=== PATIENT | male | born 1970 | race African-American/Black ===

== ENCOUNTER 2021-10-05 07:00 | Inpatient (IN) ==
[2021-10-05] MEDS ORDERED: HYDROmorphone 1 MG/1 ML SYRINGE IV STA ×3 (07:11→11:30)
[2021-10-05] MEDS ORDERED: ONDANSETRON 4 MG/2 ML VIAL IV STA (07:11)
[2021-10-05] MEDS ORDERED: SODIUM CHLORIDE 0.9% 1,000 ML IV STA ×2 (07:11→09:17)
[2021-10-05] MEDS ORDERED: diphenhydrAMINE 50 MG/1 ML VIAL ONE (07:15)
[2021-10-05 08:06] LABS: Basophils % 0.1 % (0.0-0.8); Eosinophils # 0.1 10*3/uL (0.0-0.87); Eosinophils % 0.9 % (0.00-10.9); Hematocrit 47.5 VOL% (42.0-52.0); Immature Granulocytes % 0.3 %; Immature Granulocytes Absolute 0.02 #; Lymphocytes # 1.4 10*3/uL (1.4-4.0); Lymphocytes % 18.3 % (21.2-54.2); Mean Corpuscular HGB Conc 31.6 GM/DL (32-36); Mean Corpuscular Volume 89.8 FL (87-102); Mean Platelet Volume 11.2 FL (9.6-12.0); Monocytes # 0.3 10*3/uL (0.11-0.8); Neutrophils % 76.4 % (38.7-73.9); Platelet Count 231 T/CUMM (130-400); Red Blood Count 5.29 MC/CUMM (3.8-5.5); Red Cell Distribution Width 13.6 % (9.3-17.3); White Blood Count 7.5 T/CUMM (4-12)
[2021-10-05 08:28] LABS: Alanine Aminotransferase 43 U/L (16-61); Albumin 3.8 G/DL (3.4-5.0); Alkaline Phosphatase 116 U/L (45-117); Aspartate Amino Transferase 26 U/L (0-37); Blood Urea Nitrogen 21 MG/DL (7-18); Calcium 9.6 MG/DL (8.5-10.1); Carbon Dioxide 30 MMOL/L (21-32); Chloride 103 MMOL/L (98-107); Glucose 154 MG/DL (74-106); Osmolality,Calculated 278.8 MOS/KG (273-304); Sodium 137 MMOL/L (136-145); Total Protein 8.9 G/DL (6.4-8.2)
[2021-10-05 09:40] LABS: Bacteria,Urine Occasional /HPF (Few); Mucus,Urine Occasional /LPF (Occasional); RBC,Urine 2 /HPF (0-4)
[2021-10-05 09:41] LABS: Bilirubin,Urine Negative (Negative); Blood, Urine Negative (Negative); Glucose,Urine (UA) Negative (Negative); Ketones,Urine Negative (Negative); Nitrite,Urine Negative (Negative); Protein,Urine Negative (Negative); Urine Appearance Clear (Clear); Urine Color Yellow (Yellow); Urine Urobilinogen 0.2 eU/dL (<2.0); Urine pH 8.5 (4.5-8.0)
[2021-10-05] MEDS ORDERED: hydrALAZINE 20 MG/1 ML VIAL ONE (11:27)
[2021-10-05] MEDS ORDERED: hydrALAZINE 20 MG/1 ML VIAL IV STA (11:30)
[2021-10-05] MEDS ORDERED: ALBUTEROL/IPRATROPIUM 3 ML NEB RESP TX PRN (13:37)
[2021-10-05] MEDS ORDERED: HYDROmorphone 1 MG/1 ML SYRINGE IV PRN (13:37)
[2021-10-05] MEDS ORDERED: ACETAMINOPHEN 325 MG TABLET PO PRN (13:37)
[2021-10-05] MEDS ORDERED: ONDANSETRON 4 MG/2 ML VIAL IV PRN (13:37)
[2021-10-05] MEDS: LACTATED RINGERS 1,000 ML IV SCH (14:00)
[2021-10-05] MEDS ORDERED: hydrALAZINE 20 MG/1 ML VIAL IV PRN (16:20)
[2021-10-06] MEDS: LACTATED RINGERS 1,000 ML IV SCH ×4 (01:49→14:02)
[2021-10-06 06:26] LABS: Basophils % 0.2 % (0.0-0.8); Eosinophils # 0.1 10*3/uL (0.0-0.87); Eosinophils % 1.9 % (0.00-10.9); Hematocrit 45.5 VOL% (42.0-52.0); Hemoglobin 14.2 GM/DL (14.0-18.0); Immature Granulocytes % 0.2 %; Immature Granulocytes Absolute 0.01 #; Lymphocytes # 2.3 10*3/uL (1.4-4.0); Lymphocytes % 39.1 % (21.2-54.2); Mean Corpuscular HGB Conc 31.2 GM/DL (32-36); Mean Corpuscular Volume 90.3 FL (87-102); Mean Platelet Volume 11.5 FL (9.6-12.0); Monocytes # 0.5 10*3/uL (0.11-0.8); Monocytes % 7.9 % (1.7-12.7); Neutrophils % 50.7 % (38.7-73.9); Platelet Count 237 T/CUMM (130-400); Red Blood Count 5.04 MC/CUMM (3.8-5.5); Red Cell Distribution Width 13.6 % (9.3-17.3); White Blood Count 5.8 T/CUMM (4-12)
[2021-10-06 06:59] LABS: Osmolality,Calculated 274.7 MOS/KG (273-304); Potassium 4.3 MMOL/L (3.5-5.1)
[2021-10-06] MEDS: NICOTINE 21 MG/24 HR PATCH TRANSDERM SCH ×2 (07:39→08:12)
[2021-10-06] MEDS ORDERED: PANTOPRAZOLE 40 MG VIAL IV SCH (09:00)
[2021-10-06] MEDS ORDERED: amLODIPine 5 MG TABLET PO SCH (10:15)
[2021-10-06 16:30] VITALS: BP 136/94
== END 2021-10-06 17:53 | disposition home or self-care (01) | DRG 390 ==
LOC: N.ED 07:00 → N.EDINP 13:37 → N.3E 19:07
PROVIDERS: ADMIT Surgery; ATTEND Surgery